=== PATIENT | female | born 2000 | race Caucasian/White ===

== ENCOUNTER 2021-09-09 09:55 | Outpatient (CLI) | payer MEDICAID, SELFPAY ==
--- NOTE | 2021-09-09 10:00 | FL_ITS ---
WS: [id number] Barium swallow and esophagram, 09/09/2021 Clinical Data: DYSPEPSIA Comparison: None. Fluoroscopy time: 0.8 min minutes. Findings: The patient swallowed the thick and thin barium, and it flowed through the hypopharynx without hesita tion. No stricture, mass, polyp or erosion was seen. The barium entered the esophagus and there was normal motility throughout. No hiatal hernia, reflux, stricture, polyp, mass, erosion or ulcer was noted. The barium passed normally into the stomach. FL/FL barium swallow [id number] Impression: Normal esophagram.
== END 2021-09-09 09:56 | disposition home or self-care (01) ==
PROVIDERS: Visit Provider Family Medicine
DX: R10.13 Epigastric pain (principal)
CPT/HCPCS: 74220